=== PATIENT | male | born 1960 | race African-American/Black ===

== ENCOUNTER 2018-10-01 02:44 | Inpatient (IN) | payer BC, OTHER ==
[2018-10-01] MEDS: morphine 4 MG/ML VIAL IV (03:41)
[2018-10-01] MEDS: SOD CHLORIDE 0.9% 500 ML IV (03:41)
[2018-10-01] MEDS: ONDANSETRON 4 MG INJ IV (03:41)
[2018-10-01 04:03] LABS: ALANINE AMINOTRANSFERASE 9 IU/L (13-69); ALBUMIN 3.9 g/dl (3.3-4.9); ALBUMIN/GLOBULIN RATIO 0.84; ALKALINE PHOSPHATASE 71 IU/L (42-121); ANION GAP 9 (5-13); ASPARTATE AMINO TRANSFERASE 23 IU/L (15-46); BILIRUBIN,INDIRECT 0.1 mg/dl (0-1.1); BILIRUBIN,TOTAL 0.1 mg/dl (0.2-1.3); BLOOD UREA NITROGEN 12 mg/dl (7-20); CALCIUM 9.3 mg/dl (8.4-10.2); CARBON DIOXIDE 28 mmol/L (21-31); CHLORIDE 102 mmol/L (97-110); CREATININE 0.96 mg/dl (0.61-1.24); Estimated GFR > 60 mL/min (>60); LIPASE 30 U/L (23-300); POTASSIUM 5.1 mmol/L (3.5-5.1); SODIUM 139 mmol/L (135-144); TOTAL PROTEIN 8.5 g/dl (6.1-8.1)
[2018-10-01 04:05] LABS: ADD MAN DIFF? NO
[2018-10-01 04:12] LABS: BASOPHILS % 0.7 % (0.0-2.0); EOSINOPHILS # 0.1 10^3/ul (0.0-0.5); HEMATOCRIT 38.3 % (42.0-52.0); HEMOGLOBIN 11.8 g/dl (14.0-18.0); LYMPHOCYTES % 22.8 % (15.0-51.0); MEAN CORPUSCULAR HGB CONC 30.8 g/dl (32.0-37.0); MEAN CORPUSCULAR VOLUME 87.6 fl (82.0-101.0); MEAN PLATELET VOLUME 10.6 fl (7.4-10.4); MONOCYTE # 0.4 10^3/ul (0.3-0.9); MONOCYTES % 8.4 % (0.0-11.0); NEUTROPHIL # 2.9 10^3/ul (1.6-7.5); NEUTROPHILS % 65.2 % (39.0-77.0); PLATELET COUNT 335 10^3/UL (140-415); RED BLOOD COUNT 4.37 10^6/ul (4.70-6.10); RED CELL DISTRIBUTION WIDTH 13.2 % (11.5-14.5)
[2018-10-01 04:12] LABS: WHITE BLOOD COUNT 4.5 10^3/ul (4.8-10.8)
[2018-10-01 04:26] LABS: GLUCOSE 467 mg/dl (70-220)
[2018-10-01] MEDS: PIPER-TAZO 3.375 GM IV (PMX) 100 ML IVPB ×3 (04:44→23:28)
[2018-10-01] MEDS: INSULIN REGULAR, HUMAN 100 UNIT/1 ML 3ML VIAL SC (04:53)
[2018-10-01] MEDS ORDERED: ZOLPIDEM 5 MG TAB PO (06:00)
[2018-10-01] MEDS ORDERED: NACL 0.9% 3 ML SYG IV (06:00)
[2018-10-01] MEDS ORDERED: ALBUTEROL/IPRATROPIUM (NEB) 3 ML AMP HHN (06:00)
[2018-10-01] MEDS ORDERED: ONDANSETRON 4 MG INJ IV (06:00)
[2018-10-01] MEDS: DOCUSATE SODIUM 100 MG CAP PO ×2 (09:00→21:00)
[2018-10-01] MEDS: ALLOPURINOL 300 MG TAB PO (10:07)
[2018-10-01] MEDS: LEVOFLOXACIN 500 MG TAB PO (10:07)
[2018-10-01] MEDS: AMLODIPINE 10 MG TAB PO (10:08)
[2018-10-01] MEDS: LISINOPRIL 20 MG TAB PO ×2 (10:08→21:56)
[2018-10-01] MEDS: METOPROLOL 100 MG TAB PO ×2 (10:09→23:20)
[2018-10-01] MEDS: PANTOPRAZOLE (EC) 40 MG TAB PO (10:10)
[2018-10-01] MEDS: HEPARIN 5,000 UNIT/1 ML VIAL SC ×2 (10:10→22:03)
[2018-10-01] MEDS: ACETAMINOPHEN 325 MG TAB PO ×2 (10:21→21:55)
[2018-10-01] MEDS: INSULIN ASPART [NOVOLOG] 3 ML PEN SC ×5 (10:23→22:01)
[2018-10-01] MEDS ORDERED: VANCOMYCIN IV PER PHARMACY XX (13:30)
[2018-10-01] MEDS: INSULIN GLARGINE [LANTus] (100 UNITS/ML) SYG SC ×3 (13:30→23:29)
[2018-10-01] MEDS ORDERED: VANCOMYCIN HCL 2 GM in SOD CHLORIDE 0.9% 500 ML IVPB (15:00)
[2018-10-01] MEDS: VANCOMYCIN HCL 2 GM in SOD CHLORIDE 0.9% 500 ML IVPB (16:46)
[2018-10-01] MEDS: PREDNISOLONE/SULFACETAMIDE 5 ML OPH BOTH EYES ×2 (17:00→20:26)
[2018-10-01] MEDS ORDERED: INSULIN GLARGINE [LANTus] (100 UNITS/ML) SYG SC (21:00)
[2018-10-01 21:32] LABS: C-REACTIVE PROTEIN 5.3 mg/dl (0.0-0.9)
[2018-10-01 23:44] LABS: ERYTHROCYTE SEDIMENTATION RATE 43 mm/Hr (0-20)
[2018-10-02] MEDS: ACCU-CHEK XX (02:42)
[2018-10-02] MEDS: LEVOFLOXACIN 500 MG TAB PO (05:31)
[2018-10-02] MEDS: VANCOMYCIN HCL 1.5 GM in SOD CHLORIDE 0.9% 250 ML IVPB ×2 (05:31→16:49)
[2018-10-02] MEDS: PANTOPRAZOLE (EC) 40 MG TAB PO (05:31)
[2018-10-02] MEDS: PIPER-TAZO 3.375 GM IV (PMX) 100 ML IVPB ×3 (05:31→18:02)
[2018-10-02 05:54] LABS: ADD MAN DIFF? NO
[2018-10-02 05:57] LABS: BASOPHILS % 0.5 % (0.0-2.0); EOSINOPHILS # 0.1 10^3/ul (0.0-0.5); EOSINOPHILS % 2.7 % (0.0-7.0); HEMATOCRIT 37.9 % (42.0-52.0); HEMOGLOBIN 11.6 g/dl (14.0-18.0); LYMPHOCYTES # 0.8 10^3/ul (0.8-2.9); LYMPHOCYTES % 19.2 % (15.0-51.0); MEAN CORPUSCULAR HEMOGLOBIN 26.9 pg (29.0-33.0); MEAN CORPUSCULAR HGB CONC 30.6 g/dl (32.0-37.0); MEAN CORPUSCULAR VOLUME 87.9 fl (82.0-101.0); MONOCYTE # 0.3 10^3/ul (0.3-0.9); MONOCYTES % 7.5 % (0.0-11.0); NEUTROPHIL # 2.8 10^3/ul (1.6-7.5); NEUTROPHILS % 68.9 % (39.0-77.0); PLATELET COUNT 315 10^3/UL (140-415); RED BLOOD COUNT 4.31 10^6/ul (4.70-6.10); RED CELL DISTRIBUTION WIDTH 13.5 % (11.5-14.5)
[2018-10-02 06:52] LABS: HEMOGLOBIN A1C 11.1 % (0-5.9)
[2018-10-02 07:09] LABS: ALANINE AMINOTRANSFERASE 16 IU/L (13-69); ALBUMIN 3.4 g/dl (3.3-4.9); ALBUMIN/GLOBULIN RATIO 0.87; ALKALINE PHOSPHATASE 64 IU/L (42-121); ANION GAP 7 (5-13); ASPARTATE AMINO TRANSFERASE 20 IU/L (15-46); BILIRUBIN,INDIRECT 0.1 mg/dl (0-1.1); BILIRUBIN,TOTAL 0.1 mg/dl (0.2-1.3); BLOOD UREA NITROGEN 13 mg/dl (7-20); CARBON DIOXIDE 29 mmol/L (21-31); CHLORIDE 104 mmol/L (97-110); CHOL/HDL RATIO 6.1 RATIO; CHOLESTEROL 161 mg/dl (100-200); CREATININE 1.03 mg/dl (0.61-1.24); Estimated GFR > 60 mL/min (>60); GLUCOSE 216 mg/dl (70-220); HDL CHOLESTEROL 26 mg/dl (28-71); LDL CHOLESTEROL,CALCULATED 113 mg/dl; MAGNESIUM 1.9 mg/dl (1.7-2.5); POTASSIUM 4.9 mmol/L (3.5-5.1); SODIUM 140 mmol/L (135-144); TOTAL PROTEIN 7.3 g/dl (6.1-8.1); TRIGLYCERIDES 109 mg/dl (0-149)
[2018-10-02] MEDS: INSULIN ASPART [NOVOLOG] 3 ML PEN SC ×7 (08:15→20:48)
[2018-10-02] MEDS: PREDNISOLONE/SULFACETAMIDE 5 ML OPH BOTH EYES ×4 (08:22→20:49)
[2018-10-02] MEDS: LISINOPRIL 20 MG TAB PO ×2 (08:23→20:52)
[2018-10-02] MEDS: ALLOPURINOL 300 MG TAB PO (08:23)
[2018-10-02] MEDS: AMLODIPINE 10 MG TAB PO (08:23)
[2018-10-02] MEDS: METOPROLOL 100 MG TAB PO ×2 (08:23→20:52)
[2018-10-02] MEDS: DOCUSATE SODIUM 100 MG CAP PO ×3 (08:24→20:49)
[2018-10-02] MEDS: HEPARIN 5,000 UNIT/1 ML VIAL SC ×2 (08:48→20:53)
[2018-10-02] MEDS: HYDROCODONE/APAP (5/325) TAB PO (12:14)
[2018-10-02] MEDS: LIDOCAINE 1% (MPF) 5 ML VIAL SC (15:45)
[2018-10-02] MEDS: DAKINS 0.0125%(1/40) 473 ML SOLUTION TP (16:34)
[2018-10-02] MEDS: INSULIN GLARGINE [LANTus] (100 UNITS/ML) SYG SC (20:55)
[2018-10-03] MEDS: PIPER-TAZO 3.375 GM IV (PMX) 100 ML IVPB ×4 (00:14→18:41)
[2018-10-03] MEDS: ACCU-CHEK XX (02:00)
[2018-10-03] MEDS: HYDROCODONE/APAP (5/325) TAB PO (04:42)
[2018-10-03 05:03] LABS: ADD MAN DIFF? NO
[2018-10-03 05:06] LABS: WHITE BLOOD COUNT 4.7 10^3/ul (4.8-10.8)
[2018-10-03 05:06] LABS: BASOPHILS % 0.4 % (0.0-2.0); EOSINOPHILS # 0.2 10^3/ul (0.0-0.5); EOSINOPHILS % 3.8 % (0.0-7.0); HEMATOCRIT 36.1 % (42.0-52.0); HEMOGLOBIN 11.2 g/dl (14.0-18.0); LYMPHOCYTES # 1.1 10^3/ul (0.8-2.9); LYMPHOCYTES % 23.2 % (15.0-51.0); MEAN CORPUSCULAR HEMOGLOBIN 26.8 pg (29.0-33.0); MEAN CORPUSCULAR VOLUME 86.4 fl (82.0-101.0); MONOCYTE # 0.4 10^3/ul (0.3-0.9); MONOCYTES % 8.5 % (0.0-11.0); NEUTROPHILS % 63.5 % (39.0-77.0); PLATELET COUNT 292 10^3/UL (140-415); RED BLOOD COUNT 4.18 10^6/ul (4.70-6.10); RED CELL DISTRIBUTION WIDTH 13.5 % (11.5-14.5)
[2018-10-03 05:35] LABS: ANION GAP 6 (5-13); BLOOD UREA NITROGEN 11 mg/dl (7-20); CALCIUM 8.6 mg/dl (8.4-10.2); CARBON DIOXIDE 28 mmol/L (21-31); CHLORIDE 106 mmol/L (97-110); CREATININE 0.99 mg/dl (0.61-1.24); Estimated GFR > 60 mL/min (>60); GLUCOSE 130 mg/dl (70-220); POTASSIUM 4.1 mmol/L (3.5-5.1); SODIUM 140 mmol/L (135-144)
[2018-10-03 05:40] LABS: VANCOMYCIN,TROUGH 15.2 ug/ml (10.0-20.0)
[2018-10-03] MEDS: LEVOFLOXACIN 500 MG TAB PO (05:40)
[2018-10-03] MEDS: PANTOPRAZOLE (EC) 40 MG TAB PO (05:41)
[2018-10-03] MEDS: VANCOMYCIN HCL 1.5 GM in SOD CHLORIDE 0.9% 250 ML IVPB ×2 (06:27→17:17)
[2018-10-03] MEDS: ALLOPURINOL 300 MG TAB PO (08:09)
[2018-10-03] MEDS: AMLODIPINE 10 MG TAB PO (08:13)
[2018-10-03] MEDS: PREDNISOLONE/SULFACETAMIDE 5 ML OPH BOTH EYES ×4 (08:13→21:11)
[2018-10-03] MEDS: METOPROLOL 100 MG TAB PO ×2 (08:13→21:11)
[2018-10-03] MEDS: INSULIN ASPART [NOVOLOG] 3 ML PEN SC ×7 (08:15→21:00)
[2018-10-03] MEDS: HEPARIN 5,000 UNIT/1 ML VIAL SC ×2 (08:17→21:06)
[2018-10-03] MEDS: DAKINS 0.0125%(1/40) 473 ML SOLUTION TP (08:18)
[2018-10-03] MEDS: DOCUSATE SODIUM 100 MG CAP PO ×2 (08:19→21:00)
[2018-10-03] MEDS: LISINOPRIL 20 MG TAB PO ×2 (08:47→21:10)
[2018-10-03] MEDS: PENTOXIFYLLINE (SR) 400 MG TAB PO ×2 (12:26→21:05)
[2018-10-03 12:36] LABS: ADD UMIC NO; UR ASCORBIC ACID NEGATIVE (NEGATIVE); UR BACTERIA FEW /HPF (NONE SEEN); UR BILIRUBIN (Dip) NEGATIVE (NEGATIVE); UR BLOOD (Dip) NEGATIVE (NEGATIVE); UR CLARITY SLIGHTLY CLOUDY (CLEAR); UR COLOR YELLOW (YELLOW); UR GLUCOSE (Dip) NEGATIVE (NEGATIVE); UR KETONES (Dip) NEGATIVE (NEGATIVE); UR LEUKOCYTE ESTERASE (Dip) NEGATIVE Leu/ul (NEGATIVE); UR NITRITE (Dip) NEGATIVE (NEGATIVE); UR RBC 0 /HPF (0-5); UR SPECIFIC GRAVITY (Dip) 1.021 (1.003-1.030); UR TOTAL PROTEIN (Dip) NEGATIVE (NEGATIVE); UR UROBILINOGEN (Dip) 2+ mg/dL (NEGATIVE); UR WBC 2 /HPF (0-5)
[2018-10-03 12:43] LABS: HEPATITIS B SURFACE ANTIGEN NEGATIVE (NEGATIVE)
[2018-10-03 13:00] LABS: HEPATITIS C VIRAL ANTIBODY NEGATIVE (NEGATIVE)
[2018-10-03] MEDS: ATORVASTATIN 40 MG TAB PO (21:05)
[2018-10-03] MEDS: CILOSTAZOL 100 MG TAB PO (21:05)
[2018-10-03] MEDS: INSULIN GLARGINE [LANTus] (100 UNITS/ML) SYG SC (22:05)
[2018-10-04] MEDS: PIPER-TAZO 3.375 GM IV (PMX) 100 ML IVPB ×4 (01:11→19:30)
[2018-10-04] MEDS: ACCU-CHEK XX (02:00)
[2018-10-04] MEDS: VANCOMYCIN HCL 1.5 GM in SOD CHLORIDE 0.9% 250 ML IVPB ×3 (04:34→16:32)
[2018-10-04] MEDS: LEVOFLOXACIN 500 MG TAB PO (05:39)
[2018-10-04] MEDS: PANTOPRAZOLE (EC) 40 MG TAB PO (05:39)
[2018-10-04 06:03] LABS: ADD MAN DIFF? NO
[2018-10-04 06:09] LABS: WHITE BLOOD COUNT 3.9 10^3/ul (4.8-10.8)
[2018-10-04 06:09] LABS: BASOPHILS % 0.8 % (0.0-2.0); EOSINOPHILS # 0.1 10^3/ul (0.0-0.5); EOSINOPHILS % 3.6 % (0.0-7.0); HEMATOCRIT 35.3 % (42.0-52.0); HEMOGLOBIN 10.9 g/dl (14.0-18.0); LYMPHOCYTES % 26.3 % (15.0-51.0); MEAN CORPUSCULAR HEMOGLOBIN 26.7 pg (29.0-33.0); MEAN CORPUSCULAR HGB CONC 30.9 g/dl (32.0-37.0); MEAN CORPUSCULAR VOLUME 86.5 fl (82.0-101.0); MEAN PLATELET VOLUME 10.3 fl (7.4-10.4); MONOCYTE # 0.3 10^3/ul (0.3-0.9); MONOCYTES % 7.9 % (0.0-11.0); NEUTROPHIL # 2.4 10^3/ul (1.6-7.5); NEUTROPHILS % 60.9 % (39.0-77.0); PLATELET COUNT 276 10^3/UL (140-415); RED BLOOD COUNT 4.08 10^6/ul (4.70-6.10); RED CELL DISTRIBUTION WIDTH 13.5 % (11.5-14.5)
[2018-10-04 06:42] LABS: ANION GAP 7 (5-13); BLOOD UREA NITROGEN 10 mg/dl (7-20); CALCIUM 8.7 mg/dl (8.4-10.2); CARBON DIOXIDE 26 mmol/L (21-31); CHLORIDE 107 mmol/L (97-110); CREATININE 0.97 mg/dl (0.61-1.24); Estimated GFR > 60 mL/min (>60); GLUCOSE 177 mg/dl (70-220); POTASSIUM 3.9 mmol/L (3.5-5.1); SODIUM 140 mmol/L (135-144)
[2018-10-04 06:46] LABS: URIC ACID 2.1 mg/dl (3.1-7.9)
[2018-10-04] MEDS: INSULIN ASPART [NOVOLOG] 3 ML PEN SC ×7 (07:59→21:00)
[2018-10-04] MEDS: HEPARIN 5,000 UNIT/1 ML VIAL SC ×2 (08:49→21:59)
[2018-10-04] MEDS: ALLOPURINOL 300 MG TAB PO (08:50)
[2018-10-04] MEDS: PENTOXIFYLLINE (SR) 400 MG TAB PO ×3 (08:50→21:59)
[2018-10-04] MEDS: CILOSTAZOL 100 MG TAB PO ×2 (08:50→22:03)
[2018-10-04] MEDS: AMLODIPINE 10 MG TAB PO (08:51)
[2018-10-04] MEDS: LISINOPRIL 20 MG TAB PO ×2 (08:52→22:03)
[2018-10-04] MEDS: DOCUSATE SODIUM 100 MG CAP PO ×2 (08:52→22:03)
[2018-10-04] MEDS: METOPROLOL 100 MG TAB PO ×2 (08:52→22:02)
[2018-10-04] MEDS: PREDNISOLONE/SULFACETAMIDE 5 ML OPH BOTH EYES ×4 (08:53→22:04)
[2018-10-04] MEDS: DAKINS 0.0125%(1/40) 473 ML SOLUTION TP (08:54)
[2018-10-04] MEDS: INSULIN GLARGINE [LANTus] (100 UNITS/ML) SYG SC (21:58)
[2018-10-04] MEDS: ATORVASTATIN 40 MG TAB PO (21:59)
[2018-10-05] MEDS: PIPER-TAZO 3.375 GM IV (PMX) 100 ML IVPB ×2 (00:36→06:39)
[2018-10-05] MEDS: ACCU-CHEK XX (02:00)
[2018-10-05] MEDS: VANCOMYCIN HCL 1.5 GM in SOD CHLORIDE 0.9% 250 ML IVPB ×2 (04:00→17:45)
[2018-10-05 05:52] LABS: ADD MAN DIFF? NO
[2018-10-05 05:59] LABS: BASOPHILS % 0.6 % (0.0-2.0); EOSINOPHILS # 0.1 10^3/ul (0.0-0.5); EOSINOPHILS % 3.7 % (0.0-7.0); HEMOGLOBIN 10.7 g/dl (14.0-18.0); LYMPHOCYTES % 28.5 % (15.0-51.0); MEAN CORPUSCULAR HEMOGLOBIN 26.6 pg (29.0-33.0); MEAN CORPUSCULAR HGB CONC 30.6 g/dl (32.0-37.0); MEAN CORPUSCULAR VOLUME 86.8 fl (82.0-101.0); MEAN PLATELET VOLUME 10.4 fl (7.4-10.4); MONOCYTE # 0.3 10^3/ul (0.3-0.9); NEUTROPHIL # 2.1 10^3/ul (1.6-7.5); NEUTROPHILS % 57.6 % (39.0-77.0); PLATELET COUNT 265 10^3/UL (140-415); RED BLOOD COUNT 4.03 10^6/ul (4.70-6.10); RED CELL DISTRIBUTION WIDTH 13.7 % (11.5-14.5)
[2018-10-05 05:59] LABS: WHITE BLOOD COUNT 3.6 10^3/ul (4.8-10.8)
[2018-10-05] MEDS: PANTOPRAZOLE (EC) 40 MG TAB PO (06:35)
[2018-10-05] MEDS: LEVOFLOXACIN 500 MG TAB PO (06:36)
[2018-10-05 06:42] LABS: ANION GAP 7 (5-13); BLOOD UREA NITROGEN 9 mg/dl (7-20); CALCIUM 8.6 mg/dl (8.4-10.2); CARBON DIOXIDE 26 mmol/L (21-31); CHLORIDE 108 mmol/L (97-110); CREATININE 1.06 mg/dl (0.61-1.24); Estimated GFR > 60 mL/min (>60); GLUCOSE 114 mg/dl (70-220); POTASSIUM 3.7 mmol/L (3.5-5.1); SODIUM 141 mmol/L (135-144)
[2018-10-05] MEDS: INSULIN ASPART [NOVOLOG] 3 ML PEN SC ×7 (07:57→21:00)
[2018-10-05] MEDS: PREDNISOLONE/SULFACETAMIDE 5 ML OPH BOTH EYES ×4 (08:29→20:20)
[2018-10-05] MEDS: METOPROLOL 100 MG TAB PO ×2 (08:30→20:21)
[2018-10-05] MEDS: DOCUSATE SODIUM 100 MG CAP PO ×2 (08:30→20:21)
[2018-10-05] MEDS: PENTOXIFYLLINE (SR) 400 MG TAB PO ×3 (08:31→20:25)
[2018-10-05] MEDS: ALLOPURINOL 300 MG TAB PO (08:31)
[2018-10-05] MEDS: AMLODIPINE 10 MG TAB PO (08:31)
[2018-10-05] MEDS: LISINOPRIL 20 MG TAB PO ×2 (08:31→20:22)
[2018-10-05] MEDS: CILOSTAZOL 100 MG TAB PO ×2 (08:31→20:21)
[2018-10-05] MEDS: DAKINS 0.0125%(1/40) 473 ML SOLUTION TP (08:32)
[2018-10-05] MEDS: HEPARIN 5,000 UNIT/1 ML VIAL SC ×2 (08:33→20:27)
[2018-10-05 16:44] LABS: VANCOMYCIN,TROUGH 14.7 ug/ml (10.0-20.0)
[2018-10-05] MEDS: ATORVASTATIN 40 MG TAB PO (20:21)
[2018-10-05] MEDS: INSULIN GLARGINE [LANTus] (100 UNITS/ML) SYG SC (21:16)
[2018-10-06] MEDS: ACCU-CHEK XX (01:48)
[2018-10-06] MEDS: VANCOMYCIN HCL 1.5 GM in SOD CHLORIDE 0.9% 250 ML IVPB ×2 (04:58→17:09)
[2018-10-06] MEDS: PANTOPRAZOLE (EC) 40 MG TAB PO (05:03)
[2018-10-06] MEDS: LEVOFLOXACIN 500 MG TAB PO (05:03)
[2018-10-06 05:45] LABS: ADD MAN DIFF? NO
[2018-10-06 05:49] LABS: BASOPHILS % 0.7 % (0.0-2.0); EOSINOPHILS # 0.1 10^3/ul (0.0-0.5); EOSINOPHILS % 3.2 % (0.0-7.0); HEMATOCRIT 34.4 % (42.0-52.0); HEMOGLOBIN 10.6 g/dl (14.0-18.0); LYMPHOCYTES # 1.1 10^3/ul (0.8-2.9); LYMPHOCYTES % 25.8 % (15.0-51.0); MEAN CORPUSCULAR HEMOGLOBIN 27.2 pg (29.0-33.0); MEAN CORPUSCULAR HGB CONC 30.8 g/dl (32.0-37.0); MEAN CORPUSCULAR VOLUME 88.4 fl (82.0-101.0); MEAN PLATELET VOLUME 10.4 fl (7.4-10.4); MONOCYTE # 0.4 10^3/ul (0.3-0.9); MONOCYTES % 8.8 % (0.0-11.0); NEUTROPHIL # 2.5 10^3/ul (1.6-7.5); NEUTROPHILS % 60.8 % (39.0-77.0); PLATELET COUNT 241 10^3/UL (140-415); RED BLOOD COUNT 3.89 10^6/ul (4.70-6.10); RED CELL DISTRIBUTION WIDTH 13.9 % (11.5-14.5)
[2018-10-06 05:49] LABS: WHITE BLOOD COUNT 4.1 10^3/ul (4.8-10.8)
[2018-10-06 06:20] LABS: ANION GAP 6 (5-13); BLOOD UREA NITROGEN 11 mg/dl (7-20); CALCIUM 8.9 mg/dl (8.4-10.2); CARBON DIOXIDE 25 mmol/L (21-31); CHLORIDE 109 mmol/L (97-110); CREATININE 1.01 mg/dl (0.61-1.24); Estimated GFR > 60 mL/min (>60); GLUCOSE 200 mg/dl (70-220); SODIUM 140 mmol/L (135-144)
[2018-10-06 06:24] LABS: POTASSIUM 3.7 mmol/L (3.5-5.1)
[2018-10-06] MEDS: INSULIN ASPART [NOVOLOG] 3 ML PEN SC ×7 (08:00→20:51)
[2018-10-06] MEDS: PENTOXIFYLLINE (SR) 400 MG TAB PO ×3 (08:40→20:40)
[2018-10-06] MEDS: CILOSTAZOL 100 MG TAB PO ×2 (08:40→20:41)
[2018-10-06] MEDS: PREDNISOLONE/SULFACETAMIDE 5 ML OPH BOTH EYES ×4 (08:40→20:42)
[2018-10-06] MEDS: ALLOPURINOL 300 MG TAB PO (08:40)
[2018-10-06] MEDS: METOPROLOL 100 MG TAB PO ×2 (08:41→20:41)
[2018-10-06] MEDS: LISINOPRIL 20 MG TAB PO ×2 (08:41→20:40)
[2018-10-06] MEDS: AMLODIPINE 10 MG TAB PO (08:41)
[2018-10-06] MEDS: DOCUSATE SODIUM 100 MG CAP PO ×2 (08:42→20:40)
[2018-10-06] MEDS: DAKINS 0.0125%(1/40) 473 ML SOLUTION TP (08:44)
[2018-10-06] MEDS: HEPARIN 5,000 UNIT/1 ML VIAL SC ×2 (12:02→20:44)
[2018-10-06] MEDS: ACETAMINOPHEN 325 MG TAB PO (17:44)
[2018-10-06] MEDS: ATORVASTATIN 40 MG TAB PO (20:40)
[2018-10-06] MEDS: INSULIN GLARGINE [LANTus] (100 UNITS/ML) SYG SC (20:51)
[2018-10-07] MEDS: ACCU-CHEK XX (02:00)
[2018-10-07] MEDS: VANCOMYCIN HCL 1.5 GM in SOD CHLORIDE 0.9% 250 ML IVPB ×2 (04:53→18:05)
[2018-10-07 05:19] LABS: ADD MAN DIFF? NO
[2018-10-07 05:22] LABS: WHITE BLOOD COUNT 4.2 10^3/ul (4.8-10.8)
[2018-10-07 05:22] LABS: BASOPHILS % 0.5 % (0.0-2.0); EOSINOPHILS # 0.1 10^3/ul (0.0-0.5); EOSINOPHILS % 3.1 % (0.0-7.0); HEMATOCRIT 34.8 % (42.0-52.0); HEMOGLOBIN 10.6 g/dl (14.0-18.0); LYMPHOCYTES # 1.2 10^3/ul (0.8-2.9); LYMPHOCYTES % 28.7 % (15.0-51.0); MEAN CORPUSCULAR HEMOGLOBIN 26.7 pg (29.0-33.0); MEAN CORPUSCULAR HGB CONC 30.5 g/dl (32.0-37.0); MEAN CORPUSCULAR VOLUME 87.7 fl (82.0-101.0); MONOCYTE # 0.4 10^3/ul (0.3-0.9); MONOCYTES % 8.5 % (0.0-11.0); NEUTROPHIL # 2.5 10^3/ul (1.6-7.5); NEUTROPHILS % 58.5 % (39.0-77.0); PLATELET COUNT 209 10^3/UL (140-415); RED BLOOD COUNT 3.97 10^6/ul (4.70-6.10)
[2018-10-07 06:00] LABS: ANION GAP 7 (5-13); BLOOD UREA NITROGEN 12 mg/dl (7-20); CALCIUM 8.9 mg/dl (8.4-10.2); CARBON DIOXIDE 26 mmol/L (21-31); CHLORIDE 108 mmol/L (97-110); CREATININE 1.22 mg/dl (0.61-1.24); Estimated GFR > 60 mL/min (>60); GLUCOSE 160 mg/dl (70-220); POTASSIUM 3.7 mmol/L (3.5-5.1); SODIUM 141 mmol/L (135-144)
[2018-10-07] MEDS: LEVOFLOXACIN 500 MG TAB PO (06:00)
[2018-10-07] MEDS: PANTOPRAZOLE (EC) 40 MG TAB PO (06:00)
[2018-10-07] MEDS: INSULIN ASPART [NOVOLOG] 3 ML PEN SC ×7 (08:00→20:59)
[2018-10-07] MEDS: PREDNISOLONE/SULFACETAMIDE 5 ML OPH BOTH EYES ×4 (08:11→21:12)
[2018-10-07] MEDS: DOCUSATE SODIUM 100 MG CAP PO ×2 (08:12→21:01)
[2018-10-07] MEDS: AMLODIPINE 10 MG TAB PO ×2 (08:12→13:46)
[2018-10-07] MEDS: CILOSTAZOL 100 MG TAB PO ×2 (08:12→21:00)
[2018-10-07] MEDS: METOPROLOL 100 MG TAB PO ×2 (08:12→21:01)
[2018-10-07] MEDS: LISINOPRIL 20 MG TAB PO ×3 (08:14→21:00)
[2018-10-07] MEDS: PENTOXIFYLLINE (SR) 400 MG TAB PO ×3 (08:14→21:01)
[2018-10-07] MEDS: ALLOPURINOL 300 MG TAB PO (08:14)
[2018-10-07] MEDS: DAKINS 0.0125%(1/40) 473 ML SOLUTION TP (08:15)
[2018-10-07] MEDS: HEPARIN 5,000 UNIT/1 ML VIAL SC ×2 (08:24→21:08)
[2018-10-07] MEDS: DEXTROSE 5%-0.45% NACL 1,000 ML IV (10:24)
[2018-10-07] MEDS ORDERED: HEPARIN 1000 UNITS/ML 10 ML INJ (11:15)
[2018-10-07] MEDS ORDERED: LIDOCAINE 1% (MDV) 20 ML INJ (11:15)
[2018-10-07] MEDS ORDERED: IODIXANOL LOCM 100 ML BTL (11:15)
[2018-10-07] MEDS ORDERED: FENTAnyl 50 MCG/ML VIAL (11:16)
[2018-10-07] MEDS ORDERED: MIDAZOLAM 1 MG/ML 2 ML INJ (11:16)
[2018-10-07] MEDS ORDERED: SOD CHLORIDE 0.9% 500 ML (11:16)
[2018-10-07] MEDS ORDERED: GUAIFENESIN/DM 5ML CUP PO (13:00)
[2018-10-07 13:43] LABS: PROCALCITONIN <0.10 ng/mL (<0.10)
[2018-10-07] MEDS: HYDROCODONE/APAP (5/325) TAB PO (13:45)
[2018-10-07] MEDS: ATORVASTATIN 40 MG TAB PO (21:00)
[2018-10-07] MEDS: INSULIN GLARGINE [LANTus] (100 UNITS/ML) SYG SC (21:34)
[2018-10-08] MEDS: ACCU-CHEK XX (02:00)
[2018-10-08] MEDS: VANCOMYCIN HCL 1.5 GM in SOD CHLORIDE 0.9% 250 ML IVPB (05:01)
[2018-10-08] MEDS: LEVOFLOXACIN 500 MG TAB PO (05:01)
[2018-10-08] MEDS: PANTOPRAZOLE (EC) 40 MG TAB PO (05:01)
[2018-10-08 06:24] LABS: ANION GAP 7 (5-13); BLOOD UREA NITROGEN 14 mg/dl (7-20); CALCIUM 8.9 mg/dl (8.4-10.2); CARBON DIOXIDE 27 mmol/L (21-31); CHLORIDE 106 mmol/L (97-110); CREATININE 1.02 mg/dl (0.61-1.24); Estimated GFR > 60 mL/min (>60); GLUCOSE 140 mg/dl (70-220); POTASSIUM 3.7 mmol/L (3.5-5.1); SODIUM 140 mmol/L (135-144)
[2018-10-08] MEDS: INSULIN ASPART [NOVOLOG] 3 ML PEN SC ×7 (08:00→20:45)
[2018-10-08] MEDS: LISINOPRIL 20 MG TAB PO ×2 (08:23→20:49)
[2018-10-08] MEDS: ALLOPURINOL 300 MG TAB PO (08:23)
[2018-10-08] MEDS: PENTOXIFYLLINE (SR) 400 MG TAB PO ×3 (08:23→20:46)
[2018-10-08] MEDS: DOCUSATE SODIUM 100 MG CAP PO ×2 (08:24→20:46)
[2018-10-08] MEDS: METOPROLOL 100 MG TAB PO ×2 (08:24→20:49)
[2018-10-08] MEDS: CILOSTAZOL 100 MG TAB PO ×2 (08:24→20:46)
[2018-10-08] MEDS: AMLODIPINE 10 MG TAB PO (08:24)
[2018-10-08] MEDS: HEPARIN 5,000 UNIT/1 ML VIAL SC ×2 (08:25→20:51)
[2018-10-08] MEDS: DAKINS 0.0125%(1/40) 473 ML SOLUTION TP (08:34)
[2018-10-08] MEDS: PREDNISOLONE/SULFACETAMIDE 5 ML OPH BOTH EYES ×4 (08:35→20:46)
[2018-10-08] MEDS: HYDROCODONE/APAP (5/325) TAB PO (15:33)
[2018-10-08 16:19] LABS: VANCOMYCIN,TROUGH 18.4 ug/ml (10.0-20.0)
[2018-10-08] MEDS: VANCOMYCIN HCL 1.25 GM in SOD CHLORIDE 0.9% 250 ML IVPB (18:30)
[2018-10-08] MEDS: ATORVASTATIN 40 MG TAB PO (20:46)
[2018-10-08] MEDS: INSULIN GLARGINE [LANTus] (100 UNITS/ML) SYG SC (20:51)
== END 2018-10-08 22:55 | disposition home health service (06) | DRG 623 ==
LOC: E/R 02:44 → 2NE 04:44
PROC: 0JBQ0ZZ Excision of Right Foot Subcutaneous Tissue and Fascia, Open Approach (ICD-10-PCS; principal; 2018-10-07 11:24)
PROC: 02H633Z Insertion of Infusion Device into Right Atrium, Percutaneous Approach (ICD-10-PCS; 2018-10-07 11:24)
PROC: B244ZZZ Ultrasonography of Right Heart (ICD-10-PCS; 2018-10-07 11:24)
PROC: B41DYZZ Fluoroscopy of Aorta and Bilateral Lower Extremity Arteries using Other Contrast (ICD-10-PCS; 2018-10-07 11:24)
PROC: B410YZZ Fluoroscopy of Abdominal Aorta using Other Contrast (ICD-10-PCS; 2018-10-07 11:24)
DX: E11.621 Type 2 diabetes mellitus with foot ulcer (principal); M86.671 Other chronic osteomyelitis, right ankle and foot; R78.81 Bacteremia; L03.115 Cellulitis of right lower limb; C94.81 Other specified leukemias, in remission; E11.51 Type 2 diabetes mellitus with diabetic peripheral angiopathy without gangrene; E11.40 Type 2 diabetes mellitus with diabetic neuropathy, unspecified; E11.65 Type 2 diabetes mellitus with hyperglycemia; B95.0 Streptococcus, group A, as the cause of diseases classified elsewhere; E11.69 Type 2 diabetes mellitus with other specified complication; I10 Essential (primary) hypertension; H54.8 Legal blindness, as defined in USA; D64.9 Anemia, unspecified; L03.031 Cellulitis of right toe; H16.8 Other keratitis; E78.5 Hyperlipidemia, unspecified; B95.61 Methicillin susceptible Staphylococcus aureus infection as the cause of diseases classified elsewhere; Z79.4 Long term (current) use of insulin
CPT/HCPCS: 36246; 36569; 71045; 73630; 73718; 75625; 75710; 76937; 80048; 80053; 80061; 80202; 81001; 81003; 82962; 83036; 83690; 83735; 84100; 84145; 84560; 85025; 85651; 86140; 86803; 87040-91; 87070; 87340; 93306; 93926